=== PATIENT | female | born 1985 | race Hispanic/Latino ===

== ENCOUNTER 2019-03-19 20:34 | Emergency (ER) | payer MEDICAID, OTHER ==
[2019-03-19 21:12] LABS: BASOPHILS % (AUTO) 0.5 % (0.0-5.0); EOSINOPHILS % (AUTO) 2.1 % (0.0-8.0); HEMATOCRIT 27.5 % (36-48); LYMPHOCYTES % (AUTO) 25.7 % (21.0-51.0); MEAN CORPUSCULAR HEMOGLOBIN 22.5 pg (27.0-33.0); MEAN CORPUSCULAR HGB CONC 29.8 g/dL (32.0-36.0); MEAN CORPUSCULAR VOLUME 75.3 fL (79-99); MONOCYTES % (AUTO) 6.3 % (3.0-13.0); NEUTROPHILS % (AUTO) 64.9 % (40.0-77.0); PLATELET COUNT (AUTO) 275 K/uL (130-400); RED BLOOD CELL COUNT(AUTO) 3.65 MIL/uL (4.00-5.50); RED CELL DISTRIBUTION WIDTH 17.9 % (11.0-15.5); WHITE BLOOD COUNT (AUTO) 8.5 K/uL (4.8-10.8)
[2019-03-19 21:18] LABS: APPEARANCE,URINE Cloudy (CLEAR); BILIRUBIN,URINE Negative (NEGATIVE); COLOR,URINE Dark Yellow (YELLOW); GLUCOSE, URINE (UA) Negative (NEGATIVE); KETONES,URINE 15 mg/dL (NEGATIVE); LEUKOCYTE ESTERASE ,URINE Trace (NEGATIVE); NITRATE,URINE Negative (NEGATIVE); OCCULT BLOOD,URINE Negative (NEGATIVE); PROTEIN,URINE Trace mg/dL (NEGATIVE)
[2019-03-19 21:31] LABS: BACTERIA,URINE Few /HPF (None Seen); RBC,URINE 0-1 /HPF (0-1)
[2019-03-19 21:32] LABS: MUCUS,URINE Few LPF (None Seen); SQUAMOUS EPITHELIAL CELL,UR Moderate /HPF (0-2)
== END 2019-03-19 23:04 | disposition home or self-care (01) ==
LOC: EDH 20:34
DX: O99.011 Anemia complicating pregnancy, first trimester (principal); O26.891 Other specified pregnancy related conditions, first trimester; R10.2 Pelvic and perineal pain; Z3A.01 Less than 8 weeks gestation of pregnancy
CPT/HCPCS: 36415; 76817; 81001; 84702; 85025; 86900; 86901

== ENCOUNTER 2019-04-30 12:20 | Emergency (ER) | payer MEDICAID ==
[2019-04-30] MEDS ORDERED: ACETAMINOPHEN 325 MG TAB ONE (12:53)
[2019-05-19] MEDS ORDERED: FERR-82 PO (13:39)
[2019-05-19] MEDS ORDERED: DOCU100T PO (13:39)
[2019-05-19] MEDS ORDERED: MV-M1TAB66 PO (13:39)
== END 2019-04-30 14:01 | disposition home or self-care (01) ==
LOC: EDH 12:20
DX: O9A.211 Injury, poisoning and certain other consequences of external causes complicating pregnancy, first trimester (principal); S39.92XA Unspecified injury of lower back, initial encounter; Z3A.10 10 weeks gestation of pregnancy; W18.39XA Other fall on same level, initial encounter; Y93.89 Activity, other specified; Y92.89 Other specified places as the place of occurrence of the external cause; Y99.8 Other external cause status
CPT/HCPCS: 76801

== ENCOUNTER 2019-05-20 07:03 | Day surgery (SDC) | payer MEDICAID ==
[2019-05-19 11:45] LABS: BASOPHILS % (AUTO) 0.4 % (0.0-5.0); EOSINOPHILS % (AUTO) 1.9 % (0.0-8.0); HEMATOCRIT 33.5 % (36-48); LYMPHOCYTES % (AUTO) 19.7 % (21.0-51.0); MEAN CORPUSCULAR HEMOGLOBIN 27.9 pg (27.0-33.0); MEAN CORPUSCULAR HGB CONC 32.2 g/dL (32.0-36.0); MEAN CORPUSCULAR VOLUME 86.6 fL (79-99); MONOCYTES % (AUTO) 3.7 % (3.0-13.0); PLATELET COUNT (AUTO) 234 K/uL (130-400); RED BLOOD CELL COUNT(AUTO) 3.87 MIL/uL (4.00-5.50); RED CELL DISTRIBUTION WIDTH 19.5 % (11.0-15.5); WHITE BLOOD COUNT (AUTO) 7.4 K/uL (4.8-10.8)
[2019-05-19 13:54] VITALS: BP 124/60
[2019-05-20] VITALS (10 sets, daily range): BP systolic 107–127; BP diastolic 41–60
[~2019-05-20] VITALS: Ht 167.6 cm; Wt 122.7 kg
[~2019-05-20 07:03] MED LIST: CEFTRIAXONE SODIUM 1 GM IVP SCH; DOCU100T PO; FERR-82 PO; LACTATED RINGERS 1000ML 1,000 ML IV SCH; MV-M1TAB66 PO
[2019-05-20] MEDS ORDERED: EPHEDRINE SULFATE 50 MG/ML AMPULE ONE (08:32)
[2019-05-20] MEDS ORDERED: ACETAMINOPHEN-CODEINE 300/30MG TAB ONE (12:57)
--- NOTE | 2019-05-20 13:37 | NUR ---
pt able to move legs equally, pt able to stand on her own. pt able to ambulate to bathroom with assistance. not able to void, ambulated back to stretcher with assistance.
--- NOTE | 2019-05-20 13:40 | NUR ---
Pt arrived by stretcher from [facility], pt awake and able to move arms freely, pt not able to move feet bilateral, able to move legs slightly and does have sensation to both feet.
[2019-05-20] MEDS ORDERED: ACETAMINOPHEN-CODEINE 300/30MG TAB PO ONE (16:30)
== END 2019-05-20 15:00 | disposition home or self-care (01) ==
LOC: DAH 07:03
DX: N88.3 Incompetence of cervix uteri (principal); Z87.59 Personal history of other complications of pregnancy, childbirth and the puerperium
CPT/HCPCS: 36415; 57700; 85025; 86850; 86900; 86901; A4215; A4221; A4222; A4223; A4663; J0696; J3490; J7030; J7120 ×2

== ENCOUNTER 2019-07-17 16:56 | Inpatient (IN) | payer MEDICAID ==
[~2019-07-17] VITALS: Ht 167.6 cm; Wt 122.5 kg
[~2019-07-17 16:56] MED LIST changes: -CEFTRIAXONE SODIUM 1 GM IVP SCH; -LACTATED RINGERS 1000ML 1,000 ML IV SCH
[2019-07-17] MEDS: LACTATED RINGERS 1000ML 1,000 ML IV PRN (18:05)
[2019-07-17 18:18] LABS: APPEARANCE,URINE Cloudy (CLEAR); BILIRUBIN,URINE Negative (NEGATIVE); COLOR,URINE Yellow (YELLOW); GLUCOSE, URINE (UA) Negative (NEGATIVE); KETONES,URINE Negative (NEGATIVE); LEUKOCYTE ESTERASE ,URINE Small (NEGATIVE); NITRATE,URINE Negative (NEGATIVE); OCCULT BLOOD,URINE Negative (NEGATIVE); PH,URINE 5.5 (5.0-8.0); PROTEIN,URINE Negative (NEGATIVE)
[2019-07-17] MEDS ORDERED: AMPICILLIN 2GM+NS 100ML 100 ML IV ONE (18:26)
[2019-07-17] MEDS: AMPICILLIN 2GM+NS 100ML 100 ML IV SCH (18:30)
[2019-07-17 18:45] LABS: BACTERIA,URINE Few /HPF (None Seen); RBC,URINE 0-1 /HPF (0-1); SQUAMOUS EPITHELIAL CELL,UR Moderate /HPF (0-2)
[2019-07-17 18:46] LABS: MUCUS,URINE Rare LPF (None Seen)
[2019-07-17 19:30] VITALS: BP 116/57
[2019-07-18] MEDS: LACTATED RINGERS 1000ML 1,000 ML IV PRN (02:24)
[2019-07-18] MEDS: AMPICILLIN 2GM+NS 100ML 100 ML IV SCH ×3 (02:24→18:34)
[2019-07-18] MEDS ORDERED: PHARMACY COMMUNICATION MISC SCH ×2 (05:30)
[2019-07-18] MEDS ORDERED: ACETAMINOPHEN-CODEINE 300/30MG TAB PO PRN (05:30)
[2019-07-18] MEDS: PRENATAL VITAMIN RX TABLET PO SCH (08:51)
[2019-07-18] MEDS: FERROUS SULFATE 325 MG TABLET.DR PO SCH (08:51)
[2019-07-18] MEDS ORDERED: DOCUSATE SODIUM 100 MG CAP PO ONE (08:53)
[2019-07-18] MEDS ORDERED: PERI COLACE PO SCH (09:00)
[2019-07-19] MEDS: AMPICILLIN 2GM+NS 100ML 100 ML IV SCH (02:16)
[2019-07-19] MEDS: FERROUS SULFATE 325 MG TABLET.DR PO SCH (09:10)
[2019-07-19] MEDS: PRENATAL VITAMIN RX TABLET PO SCH (09:10)
[2019-07-19] MEDS ORDERED: DOCUSATE SODIUM 100 MG CAP PO ONE (09:17)
[2019-07-20] MEDS ORDERED: DOCUSATE SODIUM 100 MG CAP PO ONE (08:59)
[2019-07-20] MEDS: PRENATAL VITAMIN RX TABLET PO SCH (09:02)
[2019-07-20] MEDS: FERROUS SULFATE 325 MG TABLET.DR PO SCH (09:02)
[2019-07-20] MEDS ORDERED: MAGNESIUM HYDROXIDE 30 ML/UDCUP PO PRN (11:00)
[2019-07-21] MEDS ORDERED: DOCUSATE SODIUM 100 MG CAP PO ONE (09:10)
[2019-07-21] MEDS: FERROUS SULFATE 325 MG TABLET.DR PO SCH (09:17)
[2019-07-21] MEDS: PRENATAL VITAMIN RX TABLET PO SCH (09:17)
[2019-07-22] MEDS: FERROUS SULFATE 325 MG TABLET.DR PO SCH (09:00)
[2019-07-22] MEDS: PRENATAL VITAMIN RX TABLET PO SCH (09:00)
[2019-07-22] MEDS ORDERED: DOCUSATE SODIUM 100 MG CAP PO ONE (10:14)
[2019-07-23] MEDS: FERROUS SULFATE 325 MG TABLET.DR PO SCH (09:00)
[2019-07-23] MEDS: PRENATAL VITAMIN RX TABLET PO SCH (09:00)
[2019-07-23] MEDS ORDERED: PHARMACY COMMUNICATION MISC SCH (09:30)
[2019-07-23] MEDS ORDERED: MAKENA PO SCH (10:16)
[2019-07-24] MEDS ORDERED: DOCUSATE SODIUM 100 MG CAP PO ONE (08:03)
[2019-07-24] MEDS: FERROUS SULFATE 325 MG TABLET.DR PO SCH (08:07)
[2019-07-24] MEDS: PRENATAL VITAMIN RX TABLET PO SCH (08:07)
[2019-11-09] MEDS ORDERED: FERR325T22 PO (11:07)
[2019-11-09] MEDS ORDERED: IRON1CAP32 PO (11:07)
[2019-11-11] MEDS ORDERED: ACET1TAB25 PO (10:22)
[2019-11-11] MEDS ORDERED: IBUP-2071 PO (10:22)
[2019-11-11] MEDS ORDERED: DOCU-116 PO (10:23)
== END 2019-07-24 10:49 | disposition home or self-care (01) | DRG 566 ==
LOC: LDH 16:56 → WSH 07-21 14:43
DX: O34.32 Maternal care for cervical incompetence, second trimester (principal); Z3A.22 22 weeks gestation of pregnancy
CPT/HCPCS: 76805; 76815; 81001; 87088; G0378; J0290; J7120

== ENCOUNTER 2019-10-03 15:44 | Observation (INO) | payer MEDICAID | END 2019-10-03 17:00 | disposition home or self-care (01) | LOC: LDH 15:44 | PROVIDERS: ADMIT Specialist; ATTEND Specialist | DX: O21.9 Vomiting of pregnancy, unspecified (principal); Z3A.32 32 weeks gestation of pregnancy | CPT/HCPCS: G0378 ==

== ENCOUNTER 2019-11-08 11:19 | Observation (INO) | payer MEDICAID ==
[~2019-11-08] VITALS: Ht 167.6 cm; Wt 128.4 kg
[2019-11-08 11:56] LABS: APPEARANCE,URINE SL CLOUDY (CLEAR); BILIRUBIN,URINE SMALL (NEGATIVE); COLOR,URINE YELLOW (YELLOW); GLUCOSE, URINE (UA) NEGATIVE (NEGATIVE); KETONES,URINE NEGATIVE (NEGATIVE); LEUKOCYTE ESTERASE ,URINE SMALL (NEGATIVE); NITRATE,URINE NEGATIVE (NEGATIVE); OCCULT BLOOD,URINE NEGATIVE (NEGATIVE); PROTEIN,URINE NEGATIVE (NEGATIVE)
[2019-11-08 12:20] LABS: MUCUS,URINE Few LPF (None Seen); SQUAMOUS EPITHELIAL CELL,UR Few /HPF (0-2)
[2019-11-08 12:21] LABS: BACTERIA,URINE Few /HPF (None Seen); RBC,URINE None Seen /HPF (0-1)
[2019-11-08] MEDS ORDERED: LACTATED RINGERS 1000ML 1,000 ML IV SCH (13:15)
[2019-11-09] MEDS ORDERED: IRON1CAP32 PO (11:07)
[2019-11-09] MEDS ORDERED: FERR325T22 PO (11:07)
[2019-11-11] MEDS ORDERED: IBUP-2071 PO (10:22)
[2019-11-11] MEDS ORDERED: ACET1TAB25 PO (10:22)
[2019-11-11] MEDS ORDERED: DOCU-116 PO (10:23)
== END 2019-11-08 15:45 | disposition home or self-care (01) ==
LOC: EDH 11:19 → LDH 11:20
DX: O62.9 Abnormality of forces of labor, unspecified (principal); O60.03 Preterm labor without delivery, third trimester; Z3A.38 38 weeks gestation of pregnancy
CPT/HCPCS: 59025; 76805; 81001; 87088; 96360; 96361; 99284; G0378 ×4; J7120 ×3

== ENCOUNTER → 2021-02-09 | Outpatient (CLI) | payer OTHER ==
[~2021-02-09] VITALS: Ht 12.7 cm; Wt 126.6 kg
[~2021-02-09] MED LIST changes: +ACET1TAB25 PO; +DOCU-116 PO; +FERR325T22 PO; +IBUP-2071 PO; +IRON1CAP32 PO
== END | disposition home or self-care (01) ==
LOC: DTH 10:37
PROVIDERS: ATTEND Surgery
DX: Z71.3 Dietary counseling and surveillance (principal); K21.9 Gastro-esophageal reflux disease without esophagitis; E78.00 Pure hypercholesterolemia, unspecified; E66.01 Morbid (severe) obesity due to excess calories; Z68.42 Body mass index [BMI] 45.0-49.9, adult
CPT/HCPCS: 97802

== ENCOUNTER → 2021-03-29 | Outpatient (CLI) | payer OTHER | END | disposition home or self-care (01) | LOC: DTH 09:37 | PROVIDERS: ATTEND Surgery | DX: Z71.3 Dietary counseling and surveillance (principal); K21.9 Gastro-esophageal reflux disease without esophagitis; E78.00 Pure hypercholesterolemia, unspecified; E66.01 Morbid (severe) obesity due to excess calories; Z68.42 Body mass index [BMI] 45.0-49.9, adult | CPT/HCPCS: 97803 ==

== ENCOUNTER → 2021-05-23 | Outpatient (CLI) | payer OTHER ==
[~2021-05-23] MED LIST changes: +ACET-2079 PO; -ACET1TAB25 PO
== END | disposition home or self-care (01) ==
LOC: DTH 10:17
PROVIDERS: ATTEND Surgery
DX: E78.00 Pure hypercholesterolemia, unspecified (principal); K21.9 Gastro-esophageal reflux disease without esophagitis; E66.01 Morbid (severe) obesity due to excess calories
CPT/HCPCS: 97803

== ENCOUNTER → 2021-06-20 | Outpatient (CLI) | payer OTHER | LOC: DTH 10:21 | PROVIDERS: ATTEND Surgery | DX: E66.01 Morbid (severe) obesity due to excess calories (principal); E78.00 Pure hypercholesterolemia, unspecified; K21.9 Gastro-esophageal reflux disease without esophagitis | CPT/HCPCS: 97803 ==

== ENCOUNTER → 2021-07-01 | Outpatient (CLI) | payer BC, MEDICAID ==
[~2021-07-01] VITALS: Ht 165.1 cm; Wt 129.3 kg
[2021-07-01 16:31] LABS: BASOPHILS % (AUTO) 0.7 % (0.0-5.0); EOSINOPHILS % (AUTO) 4.1 % (0.0-8.0); HEMATOCRIT 35.8 % (36-48); LYMPHOCYTES % (AUTO) 25.6 % (21.0-51.0); MEAN CORPUSCULAR HGB CONC 31.3 g/dL (32.0-36.0); MEAN CORPUSCULAR VOLUME 83.3 fL (79-99); MONOCYTES % (AUTO) 5.2 % (3.0-13.0); NEUTROPHILS % (AUTO) 64.1 % (40.0-77.0); PLATELET COUNT (AUTO) 212 K/uL (130-400); RED CELL DISTRIBUTION WIDTH 15.8 % (11.0-15.5); WHITE BLOOD COUNT (AUTO) 6.1 K/uL (4.8-10.8)
[2021-07-01 16:46] LABS: ALBUMIN 3.8 g/dL (3.5-5.0); BILIRUBIN,TOTAL 1.2 mg/dL (0.2-1.0); POTASSIUM 3.9 mmol/L (3.5-5.1); TOTAL PROTEIN, SERUM 8.4 g/dL (6.0-8.3)
[2021-07-05 13:42] VITALS: BP 139/6
== END | disposition home or self-care (01) ==
LOC: CANPREIN → DAH 10:00 → EDSTATUS 07-06 08:50
PROVIDERS: ATTEND Surgery
DX: Z01.818 Encounter for other preprocedural examination (principal); R63.5 Abnormal weight gain; Z20.822 Contact with and (suspected) exposure to COVID-19
CPT/HCPCS: 36415; 80053; 85025; 86850; 86900; 86901; 87635; 93005; C9803

== ENCOUNTER → 2021-12-12 | Outpatient (CLI) | payer BC, MEDICAID ==
[~2021-12-12] MED LIST changes: +REGADENOSON 0.4 MG/5 ML PF SYG IVP SCH
== END | disposition home or self-care (01) ==
LOC: RAH 08:48
PROVIDERS: ATTEND Internal Medicine Cardiovascular Disease
DX: R06.02 Shortness of breath (principal)
CPT/HCPCS: 78452; 96374; 93017; J2785; A9500 ×2

== ENCOUNTER 2022-01-20 13:00 | Inpatient (IN) | payer BC, MEDICAID ==
[~2022-01-20] VITALS: Ht 165.1 cm; Wt 124.3 kg
[2022-01-20 10:45] LABS: BASOPHILS % (AUTO) 0.4 % (0.0-5.0); EOSINOPHILS % (AUTO) 4.5 % (0.0-8.0); HEMATOCRIT 34.9 % (36-48); LYMPHOCYTES % (AUTO) 30.3 % (21.0-51.0); MEAN CORPUSCULAR HEMOGLOBIN 26.7 pg (27.0-33.0); MEAN CORPUSCULAR HGB CONC 32.7 g/dL (32.0-36.0); MEAN CORPUSCULAR VOLUME 81.7 fL (79-99); MONOCYTES % (AUTO) 4.1 % (3.0-13.0); NEUTROPHILS % (AUTO) 60.5 % (40.0-77.0); PLATELET COUNT (AUTO) 175 K/uL (130-400); RED BLOOD CELL COUNT(AUTO) 4.27 MIL/uL (4.00-5.50); RED CELL DISTRIBUTION WIDTH 15.2 % (11.0-15.5); WHITE BLOOD COUNT (AUTO) 5.3 K/uL (4.8-10.8)
[2022-01-20 10:58] LABS: ALBUMIN 3.9 g/dL (3.5-5.0); CREATININE 0.8 mg/dL (0.5-1.5); POTASSIUM 4.3 mmol/L (3.5-5.1); TOTAL PROTEIN, SERUM 8.5 g/dL (6.0-8.3)
[2022-01-24 08:49] VITALS: BP 112/59
[2022-01-25] VITALS (30 sets, daily range): BP systolic 107–138; BP diastolic 49–71
[2022-01-25] MEDS ORDERED: BUPIVACAINE/PF 0.25% 30ML VIAL IJ ONE (05:00)
[2022-01-25] MEDS ORDERED: LACTATED RINGERS 1000ML 1,000 ML IV ONE (07:04)
[2022-01-25] MEDS ORDERED: METRONIDAZOLE 500MG/100ML BAG 200 ML ONE (07:18)
[2022-01-25] MEDS ORDERED: MIDAZOLAM HCL 1 MG/ML 2ML VIAL ONE (07:21)
[2022-01-25] MEDS ORDERED: LIDOCAINE PF 100MG/5ML (2%) SYRINGE 5ML ONE (07:21)
[2022-01-25] MEDS ORDERED: PROPOFOL 10 MG/ML 20ML VIAL IV ONE (07:21)
[2022-01-25] MEDS ORDERED: FENTANYL CITRATE PF 50 MCG/1 ML 2ML VIAL ONE ×2 (07:22→09:14)
[2022-01-25] MEDS ORDERED: ROCURONIUM 10MG/1ML SYR 10 MG/ML ML ONE ×2 (07:22→09:56)
[2022-01-25] MEDS: CEFAZOLIN SODIUM 2 GM VIAL ONE ×2 (07:24→07:59)
[2022-01-25] MEDS ORDERED: PHENYLEPHRINE HCL 10 MG/ML 1ML VIAL IV ONE (07:28)
[2022-01-25] MEDS ORDERED: KETOROLAC 30MG VIAL (30MG/ML) ONE ×2 (08:01→09:55)
[2022-01-25] MEDS ORDERED: SUGAMMADEX SODIUM 200 MG/2 ML VIAL IV ONE (09:10)
[2022-01-25] MEDS ORDERED: DEXAMETHASONE SOD PHOSPHATE 4 MG/ML 1ML VIAL ONE (09:55)
[2022-01-25] MEDS ORDERED: ONDANSETRON 4MG INJ ONE ×2 (09:56→11:23)
[2022-01-25] MEDS ORDERED: PROCHLORPERAZINE 10MG/2ML INJ IV PRN (10:30)
[2022-01-25] MEDS ORDERED: MORPHINE 4 MG SYG IVP PRN (10:30)
[2022-01-25] MEDS ORDERED: ENOXAPARIN SODIUM 30 MG/0.3 ML SQ SCH (10:30)
[2022-01-25] MEDS ORDERED: ONDANSETRON 4MG INJ IVP PRN (10:30)
[2022-01-25] MEDS ORDERED: KETOROLAC 30MG VIAL (30MG/ML) IV PRN (10:30)
[2022-01-25] MEDS ORDERED: HYDROMORPHONE 1 MG INJ ONE (11:23)
[2022-01-25] MEDS: ENOXAPARIN SODIUM 40 MG/0.4 ML SYRINGE SQ SCH ×2 (13:18→23:29)
[2022-01-25] MEDS: 1/2NS+20MEQ KCL/1000ML 1,000 ML IV SCH ×2 (16:04→23:41)
[2022-01-25] MEDS: HYDROCODONE/ACETAMINOPHEN 7.5/325 MG 15 ML UDCUP PO PRN (19:12)
[2022-01-26 03:40] VITALS: BP 121/69
[2022-01-26] MEDS: 1/2NS+20MEQ KCL/1000ML 1,000 ML IV SCH (06:30)
[2022-01-26 09:00] VITALS: BP 124/63
[2022-01-26] MEDS: ENOXAPARIN SODIUM 40 MG/0.4 ML SYRINGE SQ SCH (11:27)
[2022-01-26 11:30] VITALS: BP 137/71
[2022-01-26] MEDS: HYDROCODONE/ACETAMINOPHEN 7.5/325 MG 15 ML UDCUP PO PRN (11:31)
== END 2022-01-26 16:30 | disposition home or self-care (01) | DRG 621 ==
LOC: DAHIP 01-25 06:37 → 4AH 01-25 12:33 → 4BH 01-25 21:50
PROVIDERS: ADMIT Surgery; ATTEND Surgery
PROC: 0DJ08ZZ Inspection of Upper Intestinal Tract, Via Natural or Artificial Opening Endoscopic (ICD-10-PCS; 2022-01-25)
PROC: 0D1647A Bypass Stomach to Jejunum with Autologous Tissue Substitute, Percutaneous Endoscopic Approach (ICD-10-PCS; principal; 2022-01-25 07:59)
PROC: 0FB04ZX Excision of Liver, Percutaneous Endoscopic Approach, Diagnostic (ICD-10-PCS; 2022-01-25 07:59)
DX: E66.01 Morbid (severe) obesity due to excess calories (principal); E78.5 Hyperlipidemia, unspecified; Z68.42 Body mass index [BMI] 45.0-49.9, adult; Z20.822 Contact with and (suspected) exposure to COVID-19
CPT/HCPCS: 36415; 43235; 80053; 84703; 85025; 86850; 86900; 86901; 87426; 93005; G0378; J1100; J1170; J1650; J1885; J2001; J2250; J2370; J2405; J2704; J3010; J3480; J3490; J7030; J7120